=== PATIENT | male | born 1985 | race Hispanic/Latino ===

== ENCOUNTER 2018-10-03 09:04 | Day surgery (SDC) | payer BC ==
[2018-10-03 09:44] VITALS: BMI 25.0
[2018-10-03] MEDS ORDERED: Lactated Ringer's 500 ML IV ONE (11:25)
[2018-10-03] MEDS ORDERED: Propofol 10 mg/ml Inj (20 ML) ONE ×2 (11:31→11:41)
[2018-10-03] MEDS ORDERED: Lidocaine Hydrochloride 5 ML INJ ONE (11:32)
[2018-10-03] MEDS ORDERED: Midazolam 2 MG/2 ML VIAL ONE (11:35)
[2018-10-03 12:27] VITALS: TEMP 98
[2018-10-03 12:31] VITALS: BP 115/69; PULSE 65; RESP 15; O2SAT 99
== END 2018-10-03 12:30 | disposition home or self-care (01) ==
LOC: C.ENDO 09:04 → C.SDS 09:04 → C.ENDO 12:30
PROVIDERS: ATTEND Internal Medicine Gastroenterology
DX: K21.9 Gastro-esophageal reflux disease without esophagitis (principal); K44.9 Diaphragmatic hernia without obstruction or gangrene; K29.70 Gastritis, unspecified, without bleeding
CPT/HCPCS: 43239; 88305; 88312; 88313; 88342; J7120